=== PATIENT | male | born 1945 | race Caucasian/White ===

== ENCOUNTER → 2020-02-24 | Outpatient (CLI) | payer OTHER ==
[~2020-02-24] MED LIST: IOHEXOL-350 50ML VIAL IV ONE
== END | disposition home or self-care (01) ==
LOC: RAH 13:14
PROVIDERS: ATTEND Family Medicine
DX: J44.9 Chronic obstructive pulmonary disease, unspecified (principal); J98.59 Other diseases of mediastinum, not elsewhere classified; R22.2 Localized swelling, mass and lump, trunk; N28.1 Cyst of kidney, acquired; I25.10 Atherosclerotic heart disease of native coronary artery without angina pectoris
CPT/HCPCS: 71270; Q9967